=== PATIENT | male | born 1955 | race Caucasian/White ===

== ENCOUNTER 2020-02-24 23:23 | Inpatient (IN) | payer OTHER ==
[~2020-02-24] VITALS: Ht 175.3 cm; Wt 86.2 kg
[2020-02-25 01:29] LABS: Basophils # (auto) 0 10 ^3/uL (0-0.2); Basophils % (auto) 0.2 % (0.0-2.0); Eosinophils # (auto) 0 10 ^3/uL (0-0.8); Hematocrit 42.4 % (41.0-53.0); Hemoglobin 14.7 g/dL (13.5-17.5); Lymphocytes # (auto) 0.7 10 ^3/uL (0.4-5.4); Lymphocytes % (auto) 6.6 % (10.0-50.0); Mean Corpuscular Hemoglobin 29.9 pg (28.0-32.0); Mean Corpuscular Hgb Conc. 34.8 g/dL (32.0-36.0); Monocytes # (auto) 0.9 10 ^3/uL (0-1.3); Monocytes % (auto) 8.9 % (0.0-12.0); Neutrophils # (auto) 8.9 10 ^3/uL (1.6-8.6); Neutrophils % (auto) 84.3 % (37.0-80.0); Nucleated Red Blood Cells % 0.1 %; Platelet Count (auto) 369 10^3/uL (140-450); Red Blood Cells 4.93 10^6/uL (4.5-5.90); Red Cell Distribution Width 13.2 % (11.8-14.3); White Blood Cell 10.5 10^3/uL (4.4-10.8)
[2020-02-25 01:48] LABS: Chloride 102 mmol/L (98-107); Potassium 3.7 mmol/L (3.5-5.1); Sodium 136 mmol/L (136-145)
[2020-02-25 01:52] LABS: Alanine Aminotransferase 142 U/L (16-61); Albumin 3.2 g/dL (3.4-5.0); Anion Gap 10 (5-15); Aspartate Aminotransferase 136 U/L (15-37); BUN/Creatinine Ratio 22.1; Blood Urea Nitrogen 25 mg/dL (7-18); Calcium 8.7 mg/dL (8.5-10.1); Carbon Dioxide 24 mmol/L (21-32); GFR African American 84 mL/min; GFR Non-African American 70 mL/min; Glucose 191 mg/dL (74-106); INR 1.18 (0.9-1.15); Partial Thromboplastin Time 24.4 sec (23.0-31.2)
[2020-02-25 01:59] LABS: Alkaline Phosphatase 59 U/L (45-117); Bilirubin, Total 0.9 mg/dL (0.2-1.0); Total Protein 7.9 g/dL (6.4-8.2)
[2020-02-25] MEDS ORDERED: DexAMETHasone SOD PHOS 10MG/1ML VIAL INJ IV ONE ×2 (02:15→04:15)
[2020-02-25] MEDS ORDERED: AZITHROMYCIN 500MG/ 250ML 250 ML IV ONE ×3 (02:15→15:30)
[2020-02-25] MEDS ORDERED: DOXYCYCLINE 100MG/250ML 250 ML IV ONE ×2 (02:15→04:15)
[2020-02-25 02:44] LABS: Basophils # (auto) 0 10 ^3/uL (0-0.2); Basophils % (auto) 0.2 % (0.0-2.0); Eosinophils # (auto) 0 10 ^3/uL (0-0.8); Hematocrit 43.1 % (41.0-53.0); Lymphocytes # (auto) 0.6 10 ^3/uL (0.4-5.4); Lymphocytes % (auto) 5.7 % (10.0-50.0); Mean Corpuscular Hemoglobin 29.9 pg (28.0-32.0); Mean Corpuscular Hgb Conc. 34.8 g/dL (32.0-36.0); Mean Corpuscular Volume 85.8 fL (80.0-100.0); Monocytes % (auto) 9.1 % (0.0-12.0); Neutrophils # (auto) 9.6 10 ^3/uL (1.6-8.6); Nucleated Red Blood Cells % 0.1 %; Platelet Count (auto) 388 10^3/uL (140-450); Red Blood Cells 5.02 10^6/uL (4.5-5.90); Red Cell Distribution Width 13.3 % (11.8-14.3); White Blood Cell 11.3 10^3/uL (4.4-10.8)
[2020-02-25 03:01] LABS: Albumin 3.2 g/dL (3.4-5.0); Anion Gap 11 (5-15); Blood Urea Nitrogen 29 mg/dL (7-18); Carbon Dioxide 25 mmol/L (21-32); Chloride 99 mmol/L (98-107); Glucose 204 mg/dL (74-106); Magnesium 2.2 mg/dL (1.6-2.6); Potassium 3.7 mmol/L (3.5-5.1); Sodium 135 mmol/L (136-145)
[2020-02-25 03:02] LABS: INR 1.17 (0.9-1.15); Partial Thromboplastin Time 25.5 sec (23.0-31.2)
[2020-02-25 03:07] LABS: Alanine Aminotransferase 151 U/L (16-61); Alkaline Phosphatase 53 U/L (45-117); Aspartate Aminotransferase 144 U/L (15-37); BUN/Creatinine Ratio 22.7; Bilirubin, Total 1.1 mg/dL (0.2-1.0); GFR African American 73 mL/min; GFR Non-African American 60 mL/min; Total Protein 8.3 g/dL (6.4-8.2)
[2020-02-25 03:11] LABS: Lactic Acid w/Reflex 2.1 mmol/L (0.4-2.0)
[2020-02-25] MEDS ORDERED: MORPHINE SULF INJ 2 MG/ML SYRINGE 1ML IV PRN (05:00)
[2020-02-25] MEDS ORDERED: DEXTROSE (50%) 50ML SYRG IV PRN (05:00)
[2020-02-25] MEDS ORDERED: TEMAZEPAM 15 MG CAP PO PRN (05:00)
[2020-02-25] MEDS ORDERED: SODIUM CHLORIDE 0.9% 500 ML IV ONE (05:00)
[2020-02-25] MEDS ORDERED: ONDANSETRON HCL 4 MG/2 ML VIAL IV PRN (05:00)
[2020-02-25] MEDS ORDERED: NITROGLYCERIN 0.4 MG SL TAB SL PRN (05:00)
[2020-02-25] MEDS ORDERED: ACETAMINOPHEN 500 MG TAB PO PRN (05:00)
[2020-02-25] MEDS ORDERED: SODIUM CHLORIDE 0.9% 1,000 ML IV SCH (05:00)
[2020-02-25] MEDS: InsuLIN REG 1unit/0.01ml Soln (100units/ml) SC SCH ×4 (07:00→22:33)
[2020-02-25 07:05] LABS: Magnesium 2.4 mg/dL (1.6-2.6)
[2020-02-25 07:14] LABS: CRP High Sensitivity 12.3 mg/dL (< 0.3)
[2020-02-25] MEDS: ACCU-CHEK COMFORT CURVE STRIP VI SCH ×4 (08:17→22:29)
[2020-02-25 09:53] LABS: Urine Bacteria NONE SEEN /hpf (None Seen); Urine Blood Negative /uL (Negative); Urine Hyaline Cast FEW /lpf (0 - 2); Urine Mucus FEW (None Seen); Urine Specific Gravity 1.031 (1.001-1.035); Urine WBC 2 /hpf (0 - 3)
[2020-02-25] MEDS ORDERED: ENOXAPARIN SOD 40 MG/0.4 ML SYRINGE SC SCH (10:00)
[2020-02-25] MEDS: BUDESONIDE (INHALATION) 180 MCG IH IN SCH ×2 (10:00→22:00)
[2020-02-25] MEDS: FAMOTIDINE 20 MG TAB PO SCH ×2 (10:45→21:41)
[2020-02-25] MEDS: ZINC SULFATE 220mg CAP or TAB PO SCH (10:45)
[2020-02-25] MEDS: CHOLECALCIFEROL (VITD3) 2,000 UNIT CAP PO SCH (10:45)
[2020-02-25] MEDS: DexAMETHasone SOD PHOS 10MG/1ML VIAL INJ IV SCH (10:45)
[2020-02-25] MEDS: ASCORBIC ACID 1,000 MG TAB PO SCH (10:45)
[2020-02-25] MEDS ORDERED: cefTRIAXone 1GM/50ML D5W 50 ML IV ONE (15:30)
[2020-02-25] MEDS ORDERED: REMDESIVIR PER PHARMACY 0 ML IV SCH (15:30)
[2020-02-25] MEDS ORDERED: FUROSEMIDE 20 MG/2 ML VIAL IV ONE (15:30)
[2020-02-25] MEDS ORDERED: POTASSIUM CHL 10 Meq TABLET PO ONE (15:30)
[2020-02-25] MEDS ORDERED: PRAV20TA3 PO (16:46)
[2020-02-25] MEDS ORDERED: METF-371 PO (16:46)
[2020-02-25] MEDS ORDERED: MULT-928 PO (16:47)
[2020-02-25] MEDS ORDERED: CHOL1000 PO (16:47)
[2020-02-25] MEDS ORDERED: REMDESIVIR 200 MG in NS 210ml LOADING DOSE ADULT IV ONE (17:00)
[2020-02-25] MEDS ORDERED: ENOXAPARIN SOD 100 MG/1 ML SYRINGE SC ONE (19:30)
[2020-02-25 21:15] VITALS: BP 110/59
[2020-02-26] VITALS: BP 110/59
[2020-02-26 05:47] LABS: Basophils # (auto) 0 10 ^3/uL (0-0.2); Basophils % (auto) 0.1 % (0.0-2.0); Eosinophils # (auto) 0 10 ^3/uL (0-0.8); Hematocrit 40.1 % (41.0-53.0); Hemoglobin 14.2 g/dL (13.5-17.5); Lymphocytes # (auto) 0.9 10 ^3/uL (0.4-5.4); Lymphocytes % (auto) 7.5 % (10.0-50.0); Mean Corpuscular Hemoglobin 30.1 pg (28.0-32.0); Mean Corpuscular Hgb Conc. 35.3 g/dL (32.0-36.0); Mean Corpuscular Volume 85.3 fL (80.0-100.0); Monocytes # (auto) 1.3 10 ^3/uL (0-1.3); Monocytes % (auto) 11.1 % (0.0-12.0); Neutrophils # (auto) 9.3 10 ^3/uL (1.6-8.6); Neutrophils % (auto) 81.3 % (37.0-80.0); Platelet Count (auto) 390 10^3/uL (140-450); Red Cell Distribution Width 13.2 % (11.8-14.3); White Blood Cell 11.5 10^3/uL (4.4-10.8)
[2020-02-26 06:04] LABS: INR 1.13 (0.9-1.15)
[2020-02-26 06:07] LABS: Magnesium 2.2 mg/dL (1.6-2.6); Potassium 3.9 mmol/L (3.5-5.1)
[2020-02-26 06:19] LABS: BUN/Creatinine Ratio 28.8; Bilirubin, Total 0.7 mg/dL (0.2-1.0); CRP High Sensitivity 7.63 mg/dL (< 0.3); Calcium 9.2 mg/dL (8.5-10.1); Total Protein 7.6 g/dL (6.4-8.2)
[2020-02-26] MEDS: BUDESONIDE (INHALATION) 180 MCG IH IN SCH ×2 (06:22→19:18)
[2020-02-26] MEDS: ACCU-CHEK COMFORT CURVE STRIP VI SCH ×4 (06:41→22:05)
[2020-02-26] MEDS: InsuLIN REG 1unit/0.01ml Soln (100units/ml) SC SCH ×4 (06:48→22:07)
[2020-02-26 08:27] VITALS: BP 121/83
[2020-02-26] MEDS: cefTRIAXone 1GM/50ML D5W 50 ML IV SCH (09:34)
[2020-02-26] MEDS: ENOXAPARIN SOD 100 MG/1 ML SYRINGE SC SCH ×2 (09:34→19:57)
[2020-02-26] MEDS: DexAMETHasone SOD PHOS 10MG/1ML VIAL INJ IV SCH ×2 (09:34→22:03)
[2020-02-26] MEDS: AZITHROMYCIN 500MG/ 250ML 250 ML IV SCH (09:39)
[2020-02-26] MEDS: ZINC SULFATE 220mg CAP or TAB PO SCH (09:39)
[2020-02-26] MEDS: FAMOTIDINE 20 MG TAB PO SCH ×2 (09:40→22:00)
[2020-02-26] MEDS: CHOLECALCIFEROL (VITD3) 2,000 UNIT CAP PO SCH (09:43)
[2020-02-26] MEDS: ASCORBIC ACID 1,000 MG TAB PO SCH (09:43)
[2020-02-26] MEDS ORDERED: FUROSEMIDE 20 MG/2 ML VIAL IV SCH (10:00)
[2020-02-26] MEDS ORDERED: POTASSIUM CHL 10 Meq TABLET PO SCH (10:00)
[2020-02-26] MEDS ORDERED: IOHEXOL 350 MG/ML 100ML IJ ONE (10:13)
[2020-02-26] MEDS: ALBUTEROL SULF HFA 90MCG INH 200DOSE IN PRN ×2 (10:20→19:18)
[2020-02-26] MEDS ORDERED: DEXTROSE (50%) 50ML SYRG IV PRN (13:00)
[2020-02-26] MEDS: REMDESIVIR 100mg 100 MG in SODIUM CHL 0.9% 230 ML IV SCH (14:56)
[2020-02-26 16:02] VITALS: BP 118/81
[2020-02-26] MEDS ORDERED: INSULIN LANTUS (GLARGINE) 1 /0.01ml (100units/ml) SC SCH (22:00)
[2020-02-26] MEDS: POTASSIUM CHL 10 Meq TABLET PO SCH (22:05)
[2020-02-26] MEDS: FUROSEMIDE 20 MG/2 ML VIAL IV SCH (22:05)
[2020-02-27] VITALS: BP 104/66
[2020-02-27 06:10] LABS: Hematocrit 38.7 % (41.0-53.0); Hemoglobin 13.6 g/dL (13.5-17.5); Mean Corpuscular Hgb Conc. 35.1 g/dL (32.0-36.0); Mean Corpuscular Volume 85.3 fL (80.0-100.0); Platelet Count (auto) 447 10^3/uL (140-450); Red Blood Cells 4.54 10^6/uL (4.5-5.90); Red Cell Distribution Width 13.2 % (11.8-14.3); White Blood Cell 12.5 10^3/uL (4.4-10.8)
[2020-02-27] MEDS: ACCU-CHEK COMFORT CURVE STRIP VI SCH ×4 (06:52→22:00)
[2020-02-27 06:54] LABS: Potassium 3.8 mmol/L (3.5-5.1)
[2020-02-27] MEDS: InsuLIN REG 1unit/0.01ml Soln (100units/ml) SC SCH ×4 (06:58→22:28)
[2020-02-27] MEDS: BUDESONIDE (INHALATION) 180 MCG IH IN SCH ×2 (07:01→20:30)
[2020-02-27] MEDS: ALBUTEROL SULF HFA 90MCG INH 200DOSE IN PRN ×2 (07:01→20:30)
[2020-02-27 07:10] LABS: Albumin 2.9 g/dL (3.4-5.0); BUN/Creatinine Ratio 29.4; Bilirubin, Direct 0.3 mg/dL (0-0.2); Bilirubin, Total 0.6 mg/dL (0.2-1.0); Calcium 9.3 mg/dL (8.5-10.1); Total Protein 7.2 g/dL (6.4-8.2)
[2020-02-27 07:33] LABS: Basophils % (manual) 0 (0.0-2.0); Blast Cells 0; Eosinophils % (manual) 0 (0-7); Metamyelocytes % 0; Myelocytes % 0; Promyelocytes % 0; Reactive Lymphocytes 0
[2020-02-27 08:00] VITALS: BP 120/71
[2020-02-27] MEDS: cefTRIAXone 1GM/50ML D5W 50 ML IV SCH (09:14)
[2020-02-27] MEDS: DexAMETHasone SOD PHOS 10MG/1ML VIAL INJ IV SCH (09:14)
[2020-02-27] MEDS: ENOXAPARIN SOD 100 MG/1 ML SYRINGE SC SCH ×2 (09:14→20:06)
[2020-02-27] MEDS: FUROSEMIDE 20 MG/2 ML VIAL IV SCH ×2 (09:15→21:43)
[2020-02-27] MEDS: AZITHROMYCIN 500MG/ 250ML 250 ML IV SCH (09:15)
[2020-02-27] MEDS: ZINC SULFATE 220mg CAP or TAB PO SCH (09:15)
[2020-02-27] MEDS: POTASSIUM CHL 10 Meq TABLET PO SCH ×2 (09:15→21:20)
[2020-02-27] MEDS: FAMOTIDINE 20 MG TAB PO SCH ×2 (09:15→21:20)
[2020-02-27] MEDS: CHOLECALCIFEROL (VITD3) 2,000 UNIT CAP PO SCH (09:16)
[2020-02-27] MEDS: ASCORBIC ACID 1,000 MG TAB PO SCH (09:16)
[2020-02-27 12:12] LABS: Band Neutrophils % (manual) 8; Lymphocytes % (manual) 10 (10.0-50.0); Monocytes % (manual) 7 (0-12)
[2020-02-27] MEDS: REMDESIVIR 100mg 100 MG in SODIUM CHL 0.9% 230 ML IV SCH (15:30)
[2020-02-27 15:50] VITALS: BP 116/75
[2020-02-27] MEDS ORDERED: diphenhdrAMINE HCL 50 MG/1 ML VL IV SCH (16:30)
[2020-02-27] MEDS ORDERED: methylPREDNISolone SOD SUCC 40 MG/ML VL IV ONE ×2 (16:30→21:00)
[2020-02-27] MEDS ORDERED: ACETAMINOPHEN 650 mg PER 20.3 mL UD PO SCH (16:30)
[2020-02-27] MEDS ORDERED: TOCILIZUMAB 400 MG in SODIUM CHL 0.9% 80 ML IV SCH (17:00)
[2020-02-27] MEDS: diphenhdrAMINE HCL 50 MG/1 ML VL IV SCH (21:18)
[2020-02-27] MEDS: ACETAMINOPHEN 650 mg PER 20.3 mL UD PO SCH (21:19)
[2020-02-27] MEDS: TOCILIZUMAB 400 MG in SODIUM CHL 0.9% 80 ML IV SCH (21:42)
[2020-02-27] MEDS: INSULIN LANTUS (GLARGINE) 1 /0.01ml (100units/ml) SC SCH (22:29)
[2020-02-28] VITALS: BP 116/73
[2020-02-28] MEDS: ACCU-CHEK COMFORT CURVE STRIP VI SCH ×4 (06:32→22:22)
[2020-02-28] MEDS: InsuLIN REG 1unit/0.01ml Soln (100units/ml) SC SCH ×4 (06:36→22:19)
[2020-02-28 07:09] LABS: Hematocrit 39.7 % (41.0-53.0); Mean Corpuscular Hemoglobin 30.1 pg (28.0-32.0); Mean Corpuscular Hgb Conc. 35.1 g/dL (32.0-36.0); Mean Corpuscular Volume 85.7 fL (80.0-100.0); Platelet Count (auto) 467 10^3/uL (140-450); Red Blood Cells 4.64 10^6/uL (4.5-5.90); White Blood Cell 10.4 10^3/uL (4.4-10.8)
[2020-02-28 07:12] LABS: Basophils % (manual) 0 (0.0-2.0); Blast Cells 0; Eosinophils % (manual) 0 (0-7); Promyelocytes % 0; Reactive Lymphocytes 0
[2020-02-28 07:52] LABS: Albumin 3.1 g/dL (3.4-5.0); Bilirubin, Total 0.7 mg/dL (0.2-1.0); CRP High Sensitivity 1.87 mg/dL (< 0.3); Calcium 9.2 mg/dL (8.5-10.1); Magnesium 2.3 mg/dL (1.6-2.6); Total Protein 7.5 g/dL (6.4-8.2)
[2020-02-28 08:00] VITALS: BP 114/73
[2020-02-28] MEDS: BUDESONIDE (INHALATION) 180 MCG IH IN SCH ×2 (08:35→20:57)
[2020-02-28] MEDS: ALBUTEROL SULF HFA 90MCG INH 200DOSE IN PRN ×2 (08:35→20:57)
[2020-02-28] MEDS: ENOXAPARIN SOD 100 MG/1 ML SYRINGE SC SCH ×2 (08:37→20:02)
[2020-02-28] MEDS: diphenhdrAMINE HCL 50 MG/1 ML VL IV SCH (08:38)
[2020-02-28] MEDS: DexAMETHasone SOD PHOS 10MG/1ML VIAL INJ IV SCH ×2 (08:38→22:22)
[2020-02-28] MEDS: cefTRIAXone 1GM/50ML D5W 50 ML IV SCH (08:38)
[2020-02-28] MEDS: ACETAMINOPHEN 650 mg PER 20.3 mL UD PO SCH (08:39)
[2020-02-28 09:01] LABS: Band Neutrophils % (manual) 7; Lymphocytes % (manual) 10 (10.0-50.0); Metamyelocytes % 3; Monocytes % (manual) 5 (0-12); Myelocytes % 1
[2020-02-28] MEDS: ZINC SULFATE 220mg CAP or TAB PO SCH (09:48)
[2020-02-28] MEDS: FUROSEMIDE 20 MG/2 ML VIAL IV SCH ×2 (09:48→22:31)
[2020-02-28] MEDS: FAMOTIDINE 20 MG TAB PO SCH ×2 (09:48→22:21)
[2020-02-28] MEDS: POTASSIUM CHL 10 Meq TABLET PO SCH ×2 (09:48→22:21)
[2020-02-28] MEDS: ASCORBIC ACID 1,000 MG TAB PO SCH (09:48)
[2020-02-28] MEDS: CHOLECALCIFEROL (VITD3) 2,000 UNIT CAP PO SCH (09:49)
[2020-02-28] MEDS: TOCILIZUMAB 400 MG in SODIUM CHL 0.9% 80 ML IV SCH (10:56)
[2020-02-28] MEDS: AZITHROMYCIN 500MG/ 250ML 250 ML IV SCH (12:03)
[2020-02-28] MEDS: REMDESIVIR 100mg 100 MG in SODIUM CHL 0.9% 230 ML IV SCH (15:01)
[2020-02-28 16:00] VITALS: BP 126/75
[2020-02-28] MEDS: INSULIN LANTUS (GLARGINE) 1 /0.01ml (100units/ml) SC SCH (22:21)
[2020-02-29] VITALS: BP 116/72
[2020-02-29] MEDS: ACCU-CHEK COMFORT CURVE STRIP VI SCH ×4 (06:12→22:26)
[2020-02-29] MEDS: InsuLIN REG 1unit/0.01ml Soln (100units/ml) SC SCH ×4 (06:16→22:25)
[2020-02-29] MEDS: cefTRIAXone 1GM/50ML D5W 50 ML IV SCH (07:56)
[2020-02-29] MEDS: ENOXAPARIN SOD 100 MG/1 ML SYRINGE SC SCH ×2 (07:56→22:17)
[2020-02-29 08:00] VITALS: BP 99/64
[2020-02-29] MEDS: DexAMETHasone SOD PHOS 10MG/1ML VIAL INJ IV SCH ×2 (09:38→22:16)
[2020-02-29] MEDS: AZITHROMYCIN 500MG/ 250ML 250 ML IV SCH (09:38)
[2020-02-29] MEDS: ASCORBIC ACID 1,000 MG TAB PO SCH (09:39)
[2020-02-29] MEDS: FAMOTIDINE 20 MG TAB PO SCH ×2 (09:39→22:00)
[2020-02-29] MEDS: ZINC SULFATE 220mg CAP or TAB PO SCH (09:39)
[2020-02-29] MEDS: POTASSIUM CHL 10 Meq TABLET PO SCH ×2 (09:39→22:18)
[2020-02-29] MEDS: CHOLECALCIFEROL (VITD3) 2,000 UNIT CAP PO SCH (09:40)
[2020-02-29] MEDS: FUROSEMIDE 20 MG/2 ML VIAL IV SCH ×2 (10:00→22:00)
[2020-02-29] MEDS: ALBUTEROL SULF HFA 90MCG INH 200DOSE IN PRN ×2 (10:20→20:45)
[2020-02-29] MEDS: BUDESONIDE (INHALATION) 180 MCG IH IN SCH ×2 (10:20→18:57)
[2020-02-29 11:31] LABS: Basophils # (auto) 0 10 ^3/uL (0-0.2); Basophils % (auto) 0.1 % (0.0-2.0); Eosinophils # (auto) 0 10 ^3/uL (0-0.8); Lymphocytes # (auto) 0.9 10 ^3/uL (0.4-5.4); Monocytes # (auto) 0.7 10 ^3/uL (0-1.3)
[2020-02-29 11:34] LABS: Eosinophils % (auto) 0.3 % (0.0-7.0); Hematocrit 40.5 % (41.0-53.0); Hemoglobin 14.1 g/dL (13.5-17.5); Lymphocytes % (auto) 8.9 % (10.0-50.0); Mean Corpuscular Hemoglobin 30.3 pg (28.0-32.0); Mean Corpuscular Hgb Conc. 34.9 g/dL (32.0-36.0); Mean Corpuscular Volume 86.7 fL (80.0-100.0); Neutrophils # (auto) 8.5 10 ^3/uL (1.6-8.6); Neutrophils % (auto) 83.7 % (37.0-80.0); Nucleated Red Blood Cells % 0.1 %; Platelet Count (auto) 484 10^3/uL (140-450); Red Blood Cells 4.67 10^6/uL (4.5-5.90); White Blood Cell 10.1 10^3/uL (4.4-10.8)
[2020-02-29 11:49] LABS: Potassium 4.1 mmol/L (3.5-5.1)
[2020-02-29 12:00] LABS: Albumin 3.1 g/dL (3.4-5.0); BUN/Creatinine Ratio 25.9; Bilirubin, Total 0.4 mg/dL (0.2-1.0); CRP High Sensitivity 1.01 mg/dL (< 0.3); Calcium 9.3 mg/dL (8.5-10.1); Total Protein 7.3 g/dL (6.4-8.2)
[2020-02-29] MEDS: REMDESIVIR 100mg 100 MG in SODIUM CHL 0.9% 230 ML IV SCH (15:25)
[2020-02-29 16:00] VITALS: BP 97/42
[2020-02-29] MEDS: INSULIN LANTUS (GLARGINE) 1 /0.01ml (100units/ml) SC SCH (22:26)
[2020-03-01] VITALS: BP 118/72
[2020-03-01] MEDS: InsuLIN REG 1unit/0.01ml Soln (100units/ml) SC SCH ×4 (06:38→22:07)
[2020-03-01] MEDS: ACCU-CHEK COMFORT CURVE STRIP VI SCH ×4 (07:18→22:07)
[2020-03-01] MEDS: BUDESONIDE (INHALATION) 180 MCG IH IN SCH ×2 (07:50→18:30)
[2020-03-01] MEDS: cefTRIAXone 1GM/50ML D5W 50 ML IV SCH (07:53)
[2020-03-01] MEDS: ENOXAPARIN SOD 100 MG/1 ML SYRINGE SC SCH ×2 (07:53→20:00)
[2020-03-01 08:00] VITALS: BP 108/81
[2020-03-01] MEDS: ALBUTEROL SULF HFA 90MCG INH 200DOSE IN PRN ×2 (08:00→18:30)
[2020-03-01] MEDS: DexAMETHasone SOD PHOS 10MG/1ML VIAL INJ IV SCH ×2 (09:34→21:57)
[2020-03-01] MEDS: FAMOTIDINE 20 MG TAB PO SCH ×2 (09:35→21:57)
[2020-03-01] MEDS: ZINC SULFATE 220mg CAP or TAB PO SCH (09:35)
[2020-03-01] MEDS: POTASSIUM CHL 10 Meq TABLET PO SCH ×2 (09:35→21:57)
[2020-03-01] MEDS: ASCORBIC ACID 1,000 MG TAB PO SCH (09:35)
[2020-03-01] MEDS: AZITHROMYCIN 500MG/ 250ML 250 ML IV SCH (09:35)
[2020-03-01] MEDS: CHOLECALCIFEROL (VITD3) 2,000 UNIT CAP PO SCH (09:36)
[2020-03-01] MEDS: FUROSEMIDE 40 MG/4 ML VIAL IV SCH ×2 (11:03→21:58)
[2020-03-01 16:00] VITALS: BP 100/60
[2020-03-01] MEDS: INSULIN LANTUS (GLARGINE) 1 /0.01ml (100units/ml) SC SCH (22:07)
[2020-03-01 23:47] VITALS: BP 98/68
[2020-03-02] VITALS: BP 102/64
[2020-03-02 00:09] VITALS: BP 97/65
[2020-03-02 00:24] VITALS: BP 98/62
[2020-03-02 01:19] VITALS: BP 103/78
[2020-03-02] MEDS: InsuLIN REG 1unit/0.01ml Soln (100units/ml) SC SCH ×4 (06:16→22:21)
[2020-03-02] MEDS: ACCU-CHEK COMFORT CURVE STRIP VI SCH ×4 (06:19→22:25)
[2020-03-02] MEDS: BUDESONIDE (INHALATION) 180 MCG IH IN SCH ×2 (06:38→18:40)
[2020-03-02 08:00] VITALS: BP 104/68
[2020-03-02] MEDS: ENOXAPARIN SOD 100 MG/1 ML SYRINGE SC SCH ×2 (09:52→20:30)
[2020-03-02] MEDS: FUROSEMIDE 40 MG/4 ML VIAL IV SCH ×2 (09:52→21:25)
[2020-03-02] MEDS: DexAMETHasone SOD PHOS 10MG/1ML VIAL INJ IV SCH ×2 (09:52→21:24)
[2020-03-02] MEDS: CHOLECALCIFEROL (VITD3) 2,000 UNIT CAP PO SCH (09:53)
[2020-03-02] MEDS: ZINC SULFATE 220mg CAP or TAB PO SCH (09:53)
[2020-03-02] MEDS: POTASSIUM CHL 10 Meq TABLET PO SCH ×2 (09:53→21:25)
[2020-03-02] MEDS: ASCORBIC ACID 1,000 MG TAB PO SCH (09:53)
[2020-03-02] MEDS: cefTRIAXone 1GM/50ML D5W 50 ML IV SCH (09:55)
[2020-03-02] MEDS: FAMOTIDINE 20 MG TAB PO SCH ×2 (10:00→21:24)
[2020-03-02] MEDS: AZITHROMYCIN 500MG/ 250ML 250 ML IV SCH (10:00)
[2020-03-02 16:00] VITALS: BP 108/67
[2020-03-02] MEDS: ALBUTEROL SULF HFA 90MCG INH 200DOSE IN PRN (18:40)
[2020-03-02] MEDS: INSULIN LANTUS (GLARGINE) 1 /0.01ml (100units/ml) SC SCH (22:22)
[2020-03-03] VITALS: BP 108/73
[2020-03-03 06:05] LABS: Hematocrit 42.2 % (41.0-53.0); Hemoglobin 14.8 g/dL (13.5-17.5); Mean Corpuscular Hemoglobin 30.3 pg (28.0-32.0); Mean Corpuscular Hgb Conc. 35.1 g/dL (32.0-36.0); Mean Corpuscular Volume 86.2 fL (80.0-100.0); Platelet Count (auto) 510 10^3/uL (140-450); Red Cell Distribution Width 13.4 % (11.8-14.3); White Blood Cell 9.9 10^3/uL (4.4-10.8)
[2020-03-03] MEDS: InsuLIN REG 1unit/0.01ml Soln (100units/ml) SC SCH ×4 (06:09→21:22)
[2020-03-03] MEDS: ACCU-CHEK COMFORT CURVE STRIP VI SCH ×4 (06:09→21:13)
[2020-03-03 06:10] LABS: Basophils % (manual) 0 (0.0-2.0); Blast Cells 0; Metamyelocytes % 0; Promyelocytes % 0; Reactive Lymphocytes 0
[2020-03-03 06:21] LABS: Albumin 3.3 g/dL (3.4-5.0); Magnesium 2.6 mg/dL (1.6-2.6); Potassium 3.8 mmol/L (3.5-5.1)
[2020-03-03 06:25] LABS: BUN/Creatinine Ratio 28.4; Bilirubin, Total 0.5 mg/dL (0.2-1.0); Total Protein 7.3 g/dL (6.4-8.2)
[2020-03-03] MEDS: BUDESONIDE (INHALATION) 180 MCG IH IN SCH ×2 (07:14→18:54)
[2020-03-03] MEDS: ALBUTEROL SULF HFA 90MCG INH 200DOSE IN PRN ×2 (07:14→18:54)
[2020-03-03 07:37] LABS: Band Neutrophils % (manual) 2; Eosinophils % (manual) 1 (0-7); Lymphocytes % (manual) 16 (10.0-50.0); Monocytes % (manual) 8 (0-12); Myelocytes % 2
[2020-03-03 08:00] VITALS: BP 108/66
[2020-03-03] MEDS: DexAMETHasone SOD PHOS 10MG/1ML VIAL INJ IV SCH (09:20)
[2020-03-03] MEDS: cefTRIAXone 1GM/50ML D5W 50 ML IV SCH (09:20)
[2020-03-03] MEDS: ENOXAPARIN SOD 100 MG/1 ML SYRINGE SC SCH ×2 (09:20→21:13)
[2020-03-03] MEDS: FUROSEMIDE 40 MG/4 ML VIAL IV SCH ×2 (09:21→21:21)
[2020-03-03] MEDS: AZITHROMYCIN 500MG/ 250ML 250 ML IV SCH (09:21)
[2020-03-03] MEDS: ZINC SULFATE 220mg CAP or TAB PO SCH (09:21)
[2020-03-03] MEDS: POTASSIUM CHL 10 Meq TABLET PO SCH ×2 (09:22→21:13)
[2020-03-03] MEDS: CHOLECALCIFEROL (VITD3) 2,000 UNIT CAP PO SCH (09:22)
[2020-03-03] MEDS: ASCORBIC ACID 1,000 MG TAB PO SCH (09:22)
[2020-03-03] MEDS: FAMOTIDINE 20 MG TAB PO SCH ×2 (09:22→21:13)
[2020-03-03 16:00] VITALS: BP 99/65
[2020-03-03] MEDS: INSULIN LANTUS (GLARGINE) 1 /0.01ml (100units/ml) SC SCH (21:22)
[2020-03-04] VITALS (9 sets, daily range): BP systolic 98–108; BP diastolic 67–72
[2020-03-04] MEDS: InsuLIN REG 1unit/0.01ml Soln (100units/ml) SC SCH ×4 (05:57→22:06)
[2020-03-04] MEDS: ACCU-CHEK COMFORT CURVE STRIP VI SCH ×4 (05:57→21:59)
[2020-03-04] MEDS: ALBUTEROL SULF HFA 90MCG INH 200DOSE IN PRN ×2 (06:48→22:37)
[2020-03-04] MEDS: BUDESONIDE (INHALATION) 180 MCG IH IN SCH ×2 (06:48→22:37)
[2020-03-04] MEDS ORDERED: DexAMETHasone SOD PHOS 10MG/1ML VIAL INJ IV SCH (10:00)
[2020-03-04] MEDS ORDERED: ASCO10003 PO (10:26)
[2020-03-04] MEDS ORDERED: ZINC220T6 PO (10:26)
[2020-03-04] MEDS ORDERED: ASPI-378 PO (10:26)
[2020-03-04] MEDS ORDERED: ALBUAER3 IN (10:26)
[2020-03-04] MEDS ORDERED: BUDE2SUS3 IN (10:26)
[2020-03-04] MEDS ORDERED: DEX4T PO (10:26)
[2020-03-04] MEDS ORDERED: FAMO20TA10 PO (10:26)
[2020-03-04] MEDS ORDERED: CHOL1CAP47 PO (10:26)
[2020-03-04] MEDS ORDERED: DOXY-286 PO (10:26)
[2020-03-04] MEDS: cefTRIAXone 1GM/50ML D5W 50 ML IV SCH (11:27)
[2020-03-04] MEDS: ENOXAPARIN SOD 100 MG/1 ML SYRINGE SC SCH ×2 (11:27→20:26)
[2020-03-04] MEDS: FUROSEMIDE 40 MG/4 ML VIAL IV SCH ×2 (11:28→21:59)
[2020-03-04] MEDS: AZITHROMYCIN 500MG/ 250ML 250 ML IV SCH (11:28)
[2020-03-04] MEDS: ASCORBIC ACID 1,000 MG TAB PO SCH (11:29)
[2020-03-04] MEDS: POTASSIUM CHL 10 Meq TABLET PO SCH ×2 (11:29→21:59)
[2020-03-04] MEDS: CHOLECALCIFEROL (VITD3) 2,000 UNIT CAP PO SCH (11:29)
[2020-03-04] MEDS: FAMOTIDINE 20 MG TAB PO SCH ×2 (11:29→21:59)
[2020-03-04] MEDS: ZINC SULFATE 220mg CAP or TAB PO SCH (11:29)
[2020-03-04] MEDS: INSULIN LANTUS (GLARGINE) 1 /0.01ml (100units/ml) SC SCH (22:01)
[2020-03-05] VITALS: BP 109/71
[2020-03-05] MEDS: InsuLIN REG 1unit/0.01ml Soln (100units/ml) SC SCH (06:07)
[2020-03-05] MEDS: ACCU-CHEK COMFORT CURVE STRIP VI SCH (06:07)
[2020-03-05] MEDS: ALBUTEROL SULF HFA 90MCG INH 200DOSE IN PRN (06:28)
[2020-03-05] MEDS: BUDESONIDE (INHALATION) 180 MCG IH IN SCH (06:28)
[2020-03-05 08:00] VITALS: BP 106/66
[2020-03-05] MEDS: ENOXAPARIN SOD 100 MG/1 ML SYRINGE SC SCH (09:49)
== END 2020-03-05 09:00 | disposition home or self-care (01) | DRG 871 ==
LOC: EDBD 23:23 → ER 23:27 → TELE 23:28 → TELE-EAST 02-25 20:58
PROVIDERS: ADMIT Nurse Practitioner; ATTEND Internal Medicine
PROC: XW033E5 Introduction of Remdesivir Anti-infective into Peripheral Vein, Percutaneous Approach, New Technology Group 5 (ICD-10-PCS; principal; 2020-02-25)
PROC: XW13325 Transfusion of Convalescent Plasma (Nonautologous) into Peripheral Vein, Percutaneous Approach, New Technology Group 5 (ICD-10-PCS; 2020-02-25)
PROC: XW033H5 Introduction of Tocilizumab into Peripheral Vein, Percutaneous Approach, New Technology Group 5 (ICD-10-PCS; 2020-02-27)
DX: A41.89 Other specified sepsis (principal); J12.82 Pneumonia due to coronavirus disease 2019; J96.01 Acute respiratory failure with hypoxia; U07.1 COVID-19; D68.69 Other thrombophilia; I82.432 Acute embolism and thrombosis of left popliteal vein; E66.9 Obesity, unspecified; E78.5 Hyperlipidemia, unspecified; I10 Essential (primary) hypertension; K76.0 Fatty (change of) liver, not elsewhere classified; R65.20 Severe sepsis without septic shock; D89.839 Cytokine release syndrome, grade unspecified; E11.65 Type 2 diabetes mellitus with hyperglycemia; Z68.28 Body mass index [BMI] 28.0-28.9, adult
CPT/HCPCS: 36415; 71045; 71275; 76705; 80053; 80061; 80076; 81001; 82306; 82728; 82962; 83036; 83605; 83615; 83735; 83880; 84132; 84443; 84484; 85007; 85025; 85027; 85379; 85610; 85730; 86141; 86850; 86900; 86901; 87040; 87426; 93005; 93970; 94640; 96365; 96366; 96367; 96368; 96372; 96375; 97163; G0378; J0696; J1100; J1815; J3490